=== PATIENT | female | born 1965 | race African-American/Black ===

== ENCOUNTER 2021-10-12 07:02 | Emergency (ER) | payer BC ==
--- OUTSIDE RECORDS SUMMARY | 2021-10-12 07:07 | XMS REPORT | Continuity of Care Document ---
:[address] [facility] t Address [address] [place] [address] Care Team Providers Name Role Phone Kishor Abdullahi DO Yeni Primary Care Physician PILAR PETERSON Attending Clinician Unavailable JOHNNY COLE Attending Clinician Unavailable Rodrick Guzman MD Attending Clinician [phone] Giovanny Guidry RN Attending Clinician Unavailable Austin WALTON, Carley Oro Attending Clinician Unavailable Griselda Mccann MD Attending Clinician GRISELDA MCCANN Attending Clinician Unavailable Johnny Cole MD Attending Clinician DOV BULLOCK Attending Clinician Unavailable Dov Bullock MD Attending Clinician Dov Bullock MD Attending Clinician Unavailable Lotus Mcgrath MD Attending Clinician [phone] JOE CALDERA Attending Clinician Unavailable Pilar Peterson MD Attending Clinician LAWRENCE NATHAN Attending Clinician Unavail able LAWRENCE NATHAN Admitting Clinician Unavail able Payers Payer Name Policy Type Policy Number Effective Date Expiration Date Shorty majano BCBS PPO POS EPO [id number] 2021 CHOICE 00:00:00 [employer]ET[employer] SELECT [id number] 2020 ACCESS 00:00:00 NETWORK OPEN [id number] 2019 ACCESS - CIGNA 00:00:00 HMO/QPOS/SELECT [id number] 2020 2020 - AETNA 00:00:00 00:00:00 CIGNA [id number] 2008 HMO/POS/OPEN 00:00:00 ACCESS Problems Condition Condition Condition Status Onset Resolution Last Treating Co mments Source Name Details Category Date Date Treatment Clinician Date Posterior Posterior Disease Active 2019-[address] [facility] tibial tibial 0-08 [facility] tendinitis tendinitis 00:00: Me dical of left of left 00 Center lower lower extremity extremity Tarsal Tarsal Disease Active 2019-[address] [facility] 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 Father only Performanc Performanc Disease Active [facility] e anxiety e anxiety 4-11 [facility] 00:00: Medical 00 Center Obesity Obesity Disease Active [facility] (BMI (BMI 5-05 [facility] 30-39.9) 30-39.9) 00:00: Medica l 00 Center Impaired Impaired Disease Active Overview: [facility] fasting fasting 5-05 [facility] blood blood 00:00: g of this Medical sugar sugar 00 note Center might be different from the original. A1c 6 Vitamin D Vitamin D Disease Active Overview: [facility] deficiency deficiency 5-05 [facility] 00:00: g of this Medical note Center might be different from the original. On Vit D supplemen ts Uterine Uterine Disease Active 2012-02 Overview: [facility] fibroid fibroid 03-03 Formattin [employer] 00:00: g of this Medical note Center might be different from the original. Dr Sandhya Feng -S/p ablation, still some bleeding No known No known Disease Metho di active active st problems problems Hospit a l Allergies, Adverse Reactions, Alerts Allergy Allergy Status Severity Reaction(s) Onset Inactive Treating Comm ents Source Name Type Date Date Clinician Sulfur Propensi Active 2019-02 [facility] ty to 1-10 College adverse 00:00: of reaction 00 Medicin s to e drug Sulfa Propensi Active Anaphylaxis [facility] (Sulfona ty to 2-16 [facility] adverse 00:00: Hospita Antibiot reaction 00 l ics) s to drug Sulfa Drug Active Anaphylaxis, 2012-[address] [facility] [address] [facility] (Sulfona Allergy Other (See 0-30 THROAT [facility] mide Comments) 00:00: SWELLING Medic al Antibiot 00 Center ics) SULFA Allergy Active High Anaphylaxis 2012-02 [facility] (SULFONA 0-30 MIDE 00:00: ANTIBIOT 00 ICS) Sulfamet Propensi Active Swelling 2012-02 [facility] hoxazole ty to 0-27 [facility] -[facility] adverse 00:00: of oprim reaction 00 Medicin s to e drug Sulfa Propensi Active Swelling [facility] Antibiot ty to 3-29 College ics adverse 00:00: of reaction 00 Medicin s to e drug Family History Family Member Diagnosis Comments Start Date Stop Date Source Natural father Aneurysm [facility] Natural father Aneurysm [facility] Natural father Hypertension [facility] Maternal grandmother Cancer [facility] Maternal grandmother Multiple myeloma [facility] Natural mother No Known Problems Met [facility] Other Multiple myeloma [facility] Paternal grandmother Diabetes [facility] Social History Social Habit Start Date Stop Date Quantity Comments Source History SDOH [facility] Frequency Hospita l History SDOH [facility] Std Hospital Drinks History SDOH [facility] Binge Hospital Alcohol intake 2017-04-15 2017-04-15 Current drinker of [facility] 00:00:00 00:00:00 alcohol (finding) Hospita l Alcohol Comment 2017-04-15 2017-04-15 Occasional wine Meth odist 00:00:00 00:00:00 Hospital Tobacco use and 2017-04-15 2017-04-15 Smokeless tobacco [facility] exposure 00:00:00 00:00:00 non-user Hospital Sex Assigned At [birth year] [facility] 00:00:00 00:00:00 Hospital Smoking Status Start Date Stop Date Source Never smoker [facility] o f Medicine Medications Ordered Filled Start Stop Current Ordering Indication Dosage Frequency Signature Comments Components Source Medication Medication Date Date Medication? Clinician (SIG) Name Name valsartan 2020-02 Yes 160mg QD Take [address] [facility] (DIOVAN) 0-22 mg by [facility] 320 MG 14:23: mouth Medical tablet 10 daily . [place] valsartan 2020-02 Yes 160mg QD Take [address] [facility] (DIOVAN) 0-22 mg by [facility] 320 MG 14:23: mouth Medical tablet 10 daily . [place] chlorthalid 2020-02- No TAKE [address] [facility] one 0-04 10-22 TABLET BY [facility] (HYGROTON) 00:00: 00:00 MOUTH Medic al 25 MG 00 :00 EVERY DAY Center tablet chlorthalid 2020-02- No TAKE [address] [facility] one 0-04 10-22 TABLET BY [employer] (HYGROTON) 00:00: 00:00 MOUTH Medic al 25 MG 00 :00 EVERY DAY Center tablet amlodipine Yes 5mg Take 5 mg [facility] (NORVASC) 5 9-13 by mouth. Col [facility]ge MG tablet 15:54: of 16 Medicin e valsartan Yes 320mg Take 320 [facility] (DIOVAN) 9-13 mg by [place] 320 MG 15:54: mouth. of tablet 16 Medicin e amlodipine Yes 5mg Take 5 mg [facility] (NORVASC) 5 9-13 by mouth. Col lege MG tablet 15:54: of 16 Medicin e valsartan Yes 320mg Take 320 [facility] (DIOVAN) 9-13 mg by College 320 MG 15:54: mouth. of tablet 16 Medicin e chlorthalid 2021- No 25mg Take 25 mg [facility] one 11-05- by mouth. [place] (HYGROTEN) 00:00: 04:59 of 25 MG 00 :00 Medicin tablet e chlorthalid 2020-0 2022- No 25mg Take 25 mg [facility] one 11-05 by mouth. [place] ([facility]) 00:00: 04:59 of 25 MG 00 :00 Medicin tablet e chlorthalid 2020-0 2021- No 25mg QD Take [address] [facility] one 11-05 tablet (25 [facility] (HYGROTON) 00:00: 00:00 mg total) M edical 25 MG 00 :00 by mouth Center tablet daily. chlorthalid 2020-0 2021- No 25mg QD Take [address] [facility] one 11-05 tablet (25 [facility] (HYGROTON) 00:00: 00:00 mg total) M edical 25 MG 00 :00 by mouth Center tablet daily. meclizine 2020-0 Yes [facility] (ANTIVERT) 10-20 [place] 12.5 MG 00:00: of tablet 00 Medicin e meclizine 0 Yes [facility] (ANTIVERT) 10-20 [place] 12.5 MG 00:00: of tablet 00 Medicin e meclizine 2020-0 202- No 12.5mg Take [address] (ANTIVERT) 10-20 tablet [facility] 12.5 mg 00:00: 23:59 (12.5 mg Medic al tablet 00 :00 total) by Center mouth 3 (three) times daily as needed for Dizziness or Nausea for up to 10 days. meclizine 2020-0 2020- No 12.5mg Take [address] [facility] (ANTIVERT) 10-20 tablet [facility] 12.5 mg 00:00: 23:59 (12.5 mg Medic al tablet 00 :00 total) by Center mouth 3 (three) times daily as needed for Dizziness or Nausea for up to 10 days. hydrochloro 2020-0 Yes [facility] thiazide -16 [place] 12.5 MG 00:00: of TABS 00 Medicin e hydrochloro 2020-0 Yes [facility] thiazide -16 [place] 12.5 MG 00:00: of TABS 00 Medicin e hydroCHLORO 2020-0 2021- No 12.5mg QD Take [address] thiazide 10-13 tablet [facility] (HYDRODIURI 00:00: 00:00 (12.5 mg M edical L) 12.5 MG 00 :00 total) by Cent er tablet mouth daily. hydroCHLORO 2020- No 12.5mg QD Take [address] thiazide 10-13 tablet [facility] (HYDRODIURI 00:00: 00:00 (12.5 mg M edical L) 12.5 MG 00 :00 total) by Cent er tablet mouth daily. VIRTUSSIN Yes [facility] A/C 100-10 8-11 College MG/5ML 00:00: of liquid 00 Medicin e VIRTUSSIN Yes [facility] A/C 100-10 8-11 College MG/5ML 00:00: of liquid 00 Medicin e amLODIPine 2020- No 5mg QD Take [address] (NORVASC) 5 8-10 08-10 by mouth [facility] MG tablet 13:39: 00:00 daily. Medic al 16 :00 [place] amLODIPine 2020- No 5mg QD Take [address] (NORVASC) 5 8-10 08-10 by mouth [facility] MG tablet 13:39: 00:00 daily. Medic al 16 :00 [place] azithromyci Yes TAKE 2 [facility] n 8-10 TABLET BY [place] (ZITHROMAX) 00:00: MOUTH ON of 250 MG 00 DAY 1 AND Medicin tablet 1 BY MOUTH e EVERY DAY AFTER dexamethaso Yes [facility] ne 6 MG 8-10 [place] TABS 00:00: of 00 Medicin e azithromyci 0 Yes TAKE 2 [facility] n 8-10 TABLET BY [place] (ZITHROMAX) 00:00: MOUTH ON of 250 MG 00 DAY 1 AND Medicin tablet 1 BY MOUTH e EVERY DAY AFTER dexamethaso Yes [facility] ne 6 MG 8-10 [place] TABS 00:00: of 00 Medicin e albuterol 2021- No 1{puff} 1 Puff by [facility] 108 (90 8-10 08-11 Inhalation [facility]) 00:00: 04:59 route. of mcg/act 00 :00 Medicin inhaler e albuterol 2021- No 1{puff} 1 Puff by [facility] 108 (90 8-10 08-11 Inhalation [facility]le [facility] base) 00:00: 04:59 route. of mcg/act 00 :00 Medicin inhaler e albuterol 2021- No 1{puff} Inhale [address] [facility] HFA (ProAir 8-10 08-10 puff by [facility] HFA) 90 00:00: 23:59 mouth via Medi jim mcg/actuati 00 :00 inhaler Cente r on inhaler every 6 (six) hours as needed for Wheezing or Shortness of Breath. albuterol 2021- No 1{puff} Inhale [address] [facility] HFA (ProAir 8-10 08-10 puff by [facility] HFA) 90 00:00: 23:59 mouth via Medi jim mcg/actuati 00 :00 inhaler Cente r on inhaler every 6 (six) hours as needed for Wheezing or Shortness of Breath. codeine-gua 2020- No 5mL Take [address] [facility] ifenesin 8-10 08-20 by mouth 3 [facility] (GUAIFENESI 00:00: 23:59 (three) Me dical N AC) 00 :00 times Center 10-100 mg/5 daily as mL liquid needed for Cough for up to 10 days. Max Daily Amount: 15 mLs dexAMETHaso 2020-2020- No 6mg Take [address] [facility] ne 8-10 08-20 tablet (6 [facility] (DECADRON) 00:00: 23:59 mg total) M edical 6 MG tablet 00 :00 by mouth Cent er daily with breakfast for 10 days. codeine-gua 2020-2020- No 5mL Take [address] ifenesin 8-10 08-20 by mouth 3 [facility] (GUAIFENESI 00:00: 23:59 (three) Me dical N AC) 00 :00 times Center 10-100 mg/5 daily as mL liquid needed for Cough for up to 10 days. Max Daily Amount: 15 mLs dexAMETHaso 2020-2020- No 6mg Take [address] [facility] ne 8-10 08-20 tablet (6 [facility] (DECADRON) 00:00: 23:59 mg total) M edical 6 MG tablet 00 :00 by mouth Cent er daily with breakfast for 10 days. AZITHROmyci 2020- No Mild take [address] [facility] n 8-10 08-15 intermitten tablets Luke [facility] (Zithromax 00:00: 23:59 t asthma today, Medical Z-Coy) 250 00 :00 with then take Cent er MG tablet exacerbatio 1 tablet n by mouth from day 2 to 5. AZITHROmyci 2020- No Mild take [address] [facility] n 8-10 08-15 intermitten tablets Luke [facility] (Zithromax 00:00: 23:59 t asthma today, Medical Z-Coy) 250 00 :00 with then take Cent er MG tablet exacerbatio 1 tablet n by mouth from day 2 to 5. gabapentin 2019-02- No TAKE [address] [facility] (NEURONTIN) 2 08-10 CAPSULE(10 L ukes 100 MG 00:00: 00:00 0 MG) BY Medica l capsule 00 :00 MOUTH Center THREE TIMES DAILY gabapentin 2019-02- No TAKE [address] [facility] (NEURONTIN) 2 08-10 CAPSULE(10 L [facility]kes 100 MG 00:00: 00:00 0 MG) BY Medica l capsule 00 :00 MOUTH Center THREE TIMES DAILY amlodipine 2019-02 Yes 5mg Take 5 mg [facility] (NORVASC) 5 1-10 by mouth. Col [facility]ge MG tablet 20:42: of 13 Medicin e valsartan 2019-02 Yes 320mg Take 320 [facility] (DIOVAN) 1-10 mg by [facility] 320 MG 20:42: mouth. of tablet 13 Medicin e gabapentin 2019-02 Yes TAKE 1 [facility] (NEURONTIN) 0-20 CAPSULE(10 Co llege 100 MG 00:00: 0 MG) BY of capsule 00 MOUTH Medicin THREE e TIMES DAILY gabapentin 2019-02 Yes TAKE 1 [facility] (NEURONTIN) 0-20 CAPSULE(10 Co llege 100 MG 00:00: 0 MG) BY of capsule 00 MOUTH Medicin THREE e TIMES DAILY gabapentin 2019-02 Yes TAKE 1 [facility] (NEURONTIN) 0-20 CAPSULE(10 Co llege 100 MG 00:00: 0 MG) BY of capsule 00 MOUTH Medicin THREE e TIMES DAILY hydrocodone 2020- Yes TK 1-2 T [facility] -acetaminop 0-14 PO Q 6 H [facility]ie e[facility] hen (NORCO) 00:00: PRN FOR of 5-325 mg 00 PAIN Medicin tablet e hydrocodone 2020- Yes TK 1-2 T [facility] -acetaminop 0-14 PO Q 6 H [facility] (NORCO) 00:00: PRN FOR of 5-325 mg 00 PAIN Medicin tablet e hydrocodone 2019- Yes TK 1-2 T [facility] -acetaminop 0-14 PO Q 6 H [facility] (NORCO) 00:00: PRN FOR of 5-325 mg 00 PAIN Medicin tablet e Acetaminoph 2020-0 Yes TK 1 T PO B aylor en-Codeine 9-17 Q 4 H PRN Lillie ege 300-60 MG 00:00: P FOR UP of TABS 00 TO 10 Medicin DAYS. MDD e 6 TS Acetaminoph 2020-0 Yes TK 1 T PO B aylor en-Codeine 9-17 Q 4 H PRN Lillie ege 300-60 MG 00:00: P FOR UP of TABS 00 TO 10 Medicin DAYS. MDD e 6 TS Acetaminoph 2020-0 Yes TK 1 T PO B aylor en-Codeine 9-17 Q 4 H PRN Lillie ege 300-60 MG 00:00: P FOR UP of TABS 00 TO 10 Medicin DAYS. MDD e 6 TS celecoxib 2020-0 Yes TAKE 1 [facility] (CELEBREX) 9-10 CAPSULE(10 [facility] 100 MG 00:00: 0 MG) BY of capsule 00 MOUTH Medicin EVERY 12 e HOURS celecoxib 2020-0 Yes TAKE 1 [facility] (CELEBREX) 9-10 CAPSULE(10 [facility] 100 MG 00:00: 0 MG) BY of capsule 00 MOUTH Medicin EVERY 12 e HOURS celecoxib 2020-0 Yes TAKE 1 [facility] (CELEBREX) 9-10 CAPSULE(10 [facility] 100 MG 00:00: 0 MG) BY of capsule 00 MOUTH Medicin EVERY 12 e HOURS celecoxib 2020-0 2020- No Posterior TAKE [address] [facility] (CELEBREX) 9-10 08-10 tibial CAPSULE(10 [facility] 100 MG 00:00: 00:00 tendinitis 0 MG) BY Medical capsule 00 :00 of left MOUTH Center lower EVERY 12 extremity HOURS celecoxib 2020- No Posterior TAKE [address] [facility] (CELEBREX) 9-10 08-10 tibial CAPSULE(10 [facility] 100 MG 00:00: 00:00 tendinitis 0 MG) BY Medical capsule 00 :00 of left MOUTH Center lower EVERY 12 extremity HOURS amLODIPine Yes TK 1 T PO [facility] Besylate-Va 8-18 D [facility] lsartan 00:00: of 10-320 MG 00 Medicin TABS e amLODIPine Yes TK 1 T PO [facility] Besylate-Va 8-18 D [facility] lsartan 00:00: of 10-320 MG 00 Medicin TABS e amLODIPine Yes TK 1 T PO [facility] Besylate-Va 8-18 D [facility] lsartan 00:00: of 10-320 MG 00 Medicin TABS e amlodipine- 2020- No TK [address] [facility] valsartan 10-15 08-10 D [facility] (EXFORGE) 00:00: 00:00 Medical 10-320 mg 00 :00 Center per tablet amlodipine- 2020- No TK [address] [facility] valsartan 10-15 08-10 D [facility] (EXFORGE) 00:00: 00:00 Medical 10-320 mg 00 :00 Center per tablet citalopram 2020- No 10mg Take 10 mg [facility] (CELEXA) 10 3-05 03-06 by mouth. Co llege MG tablet 00:00: 05:59 of 00 :00 Medicin e citalopram 2020- No 10mg QD Take [address] [facility] (CELEXA) 10 3-05 03-05 tablet (10 [facility] MG tablet 00:00: 23:59 mg total) Me dical 00 :00 by mouth Center daily. citalopram 2020- No 10mg QD Take [address] [facility] (CELEXA) 10 3-05 03-05 tablet (10 [facility] MG tablet 00:00: 23:59 mg total) Me dical 00 :00 by mouth Center daily. omeprazole Yes TK 1 C [facility] (PRILOSEC) 9-24 QAM B BATOOL Lillie ege 40 MG 00:00: of capsule 00 Medicin e omeprazole Yes TK 1 C PO [facility] (PRILOSEC) 9-24 QAM B BATOOL Lillie ege 40 MG 00:00: of capsule 00 Medicin e omeprazole Yes TK 1 C PO [facility] (PRILOSEC) 9-24 QAM B BATOOL Lillie ege 40 MG 00:00: of capsule 00 Medicin e omeprazole 2020- No 40mg Take [address] [facility] (PRILOSEC) 11-21 by mouth [facility] 40 MG 00:00: 00:00 as needed Medica l capsule 00 :00 . [place] omeprazole 2020- No 40mg Take [address] (PRILOSEC) 11-21 by mouth [facility] 40 MG 00:00: 00:00 as needed Medica l capsule 00 :00 . Center naltrexone- Yes Take 1 Meth brittny bupropion 2-[address] (CONTRAVE) 00:00: x 1 wk, [facility]osp [facility] 8-90 mg 00 then 1 l tablet tablet extended twice release daily x 1 wk, then 2 tablets QAM and 1 tablet before dinner x 1 wk, then 2 tablets BID thereaf naltrexone- Yes Take 1 Meth brittny bupropion 2-[address] (CONTRAVE) 00:00: x 1 wk, [facility] 8-90 mg 00 then 1 l tablet tablet extended twice release daily x 1 wk, then 2 tablets QAM and 1 tablet before dinner x 1 wk, then 2 tablets BID thereaf lorcaserin Yes 20mg QD Take 20 mg M ethodi (BELVIQ XR) 2-[address] 20 mg 00:00: daily. Hospita tablet 00 l extended release 24 hr lorcaserin Yes 20mg QD Take 20 mg M ethodi (BELVIQ XR) 2-[address] 20 mg 00:00: daily. Hospita tablet 00 l extended release 24 hr Immunizations Ordered Immunization Filled Immunization Date Status Commen ts Source Name Name Covid-19 Vaccine 2021-01-[address] [facility]na (Pf) 00:00:00 [facility] ([employer]) Covid-19 Vaccine 2021-01-[address] [facility] (Pf) 00:00:00 [facility] ([employer]) Covid-19 Vaccine 2020-09-[address] [facility] Mrna (Pf) 00:00:00 [facility] (Pfizer/[employer]) Covid-19 Vaccine 2020-09-[address] [facility] Mrna (Pf) 00:00:00 [facility] (Pfizer/[employer]) PPD Test 2014-05-[address] [facility] 00:00:00 [facility] Center PPD Test 2014-05-[address] [facility] 00:[facility]:00 [facility] Hepatitis A 2014-01-[address] [facility]00 [facility] Hepatitis A 2014-01-[address] [facility] 00:[facility]:00 [facility] Hepatitis A 2013-07-[address] [facility]00 [facility] Hepatitis A 2013-07-[address] [facility] 00:[facility]:00 [facility] PPD Test 2013-07-[address] [facility] 00:00:00 [facility] PPD Test 2013-07-[address] [facility] 00:[facility]:00 [facility] Influenza TIV (IM) 2013-01-[address] [facility] 00:[facility]:00 [facility] Influenza TIV (IM) 2013-01-[address] [facility] 00:00:00 [facility] Vital Signs Vital Name Observation Time Observation Value Comments Source Systolic blood 2020-11-10 20:53:00 129 mm[Hg] [facility] of pressure Medicine Diastolic blood 2020-11-10 20:53:00 81 mm[Hg] [facility] pressure Medicine Heart rate 2020-11-10 20:53:00 99 /min [facility] Body height 2020-11-10 20:53:00 165.1 cm [facility] Body weight 2020-11-10 20:53:00 95.255 kg [facility] BMI 2020-11-10 20:53:00 34.95 kg/m2 [facility] HEIGHT 2020-11-05 10:37:00 165.1 cm WEIGHT 2020-11-05 10:37:00 101.696 kg HEIGHT 2020-10-13 15:08:00 165.1 cm WEIGHT 2020-10-13 15:08:00 102.513 kg HEIGHT 2020-10-10 08:39:00 165.1 cm WEIGHT 2020-10-10 08:39:00 102.7 kg HEIGHT 2020-10-10 08:39:00 165.1 cm WEIGHT 2020-10-10 08:39:00 102.7 kg Systolic blood 2020-01-08 20:41:00 134 mm[Hg] [facility] pressure Medicine Diastolic blood 2020-01-08 20:41:00 85 mm[Hg] [facility] Medicine Heart rate 2020-01-08 20:41:00 80 /min [facility] height 2020-01-08 20:41:00 165.1 cm [facility] Body weight 2020-01-08 20:41:00 95.255 kg [facility] BMI 2020-01-08 20:41:00 34.95 kg/m2 [facility] HEIGHT 2020-01-03 09:37:00 165.1 cm WEIGHT 2020-01-03 09:37:00 95.709 kg HEIGHT 2019-12-06 00:00:00 165.1 cm WEIGHT 2019-12-06 00:00:00 96.163 kg HEIGHT 2019-11-08 00:00:00 165.1 cm WEIGHT 2019-11-08 00:00:00 93.895 kg Systolic blood 2020-11-05 10:37:00 132 mm[Hg] [facility] Diastolic blood 2020-11-05 10:37:00 86 mm[Hg] [facility] Heart rate 2020-11-05 10:37:00 89 /min [facility] Body temperature 2020-11-05 10:37:00 36.28 Carissa [facility] Respiratory rate 2020-11-05 10:37:00 16 /min [facility] Body height 2020-11-05 10:37:00 165.1 cm [facility] Body weight 2020-11-05 10:37:00 101.696 kg [facility] BMI 2020-11-05 10:37:00 37.31 kg/m2 [facility] Oxygen saturation in 2020-11-05 10:37:00 98 /min [facility] Arterial blood by Medical Ce nter Pulse oximetry Procedures Procedure Date / Time Performed Performing Clinician Jerrica mayfield SARS-COV2/RT-PCR ([facility] & 2021-02-18 14:35:00 Rodrick Guzman [facility] REF LABS) [facility] HC ARTERIAL DOPPLER LEGS 2021-01-13 13:56:[address] [facility] VENOUS DOPPLER LEGS 2021-01-13 13:56:00 Griselda Mccann [facility] BASIC METABOLIC PANEL (7) 2020-12-02 07:41:[facility] VIEWS 2020-10-21 08:54:00 Douglas [facility] SARS-COV2/RT-PCR ([facility] & 2020-10-06 07:23:00 Rdorick uGzman [facility] REF LABS) [facility] B-TYPE NATRIURETIC FACTOR 2020-04-08 07:44:[address] [facility] (BNP) [facility] C-REACTIVE PROTEIN 2020-04-08 07:44:00 Pilar Peterson [facility] MAGNESIUM 2020-04-08 07:44:00 Pilar Peterson [facility] TSH 2020-04-08 07:44:00 Pilar Peterson [facility] HEMOGLOBIN A1C 2020-04-08 07:44:00 Pilar Peterson [facility] LIPID PANEL 2020-04-08 07:44:00 Pilar Peterson [facility] COMPREHENSIVE METABOLIC 2020-04-08 07:44:00 Pilar Peterson [facility] CBC W/PLT COUNT & AUTO 2020-04-08 07:44:[address] [facility] CBC W/PLT COUNT & AUTO 2020-04-08 07:44:[address] [facility] Plan of Care Planned Activity Planned Date Details Comments Source Future Scheduled 2023-04-08 Lipid panel (procedure) [facility] Test 00:00:00 [code = 66600885] Medical Ce nter Future Scheduled 2023-04-08 Lipid panel (procedure) [facility] Test 00:00:00 [code = 11248444] Medical Ce nter Future Scheduled 2021-07-30 COVID-19 VACCINE (3 [facility] Test [facility]:00 Booster for Pfizer Medical C enter series) [code = COVID-19 VACCINE (3 - Booster for Pfizer series)] Future Scheduled 2021-07-30 COVID-19 VACCINE (3 - [facility] Test 00:00:00 Booster for Pfizer Medical C enter series) [code = COVID-19 VACCINE (3 - Booster for Pfizer series)] Future Scheduled 2021-03-31 COVID-19 VACCINE (1) [facility] Test 17:38:11 [code = COVID-19 Hospital VACCINE (1)] Future Scheduled 2021-03-31 Screening for malignant [facility] Test 17:38:11 neoplasm of cervix Hospital (procedure) [code = 109377812] Future Scheduled 2021-03-31 COLONOSCOPY SCREENING [facility] Test 17:38:11 [code = COLONOSCOPY Hospital SCREENING] Future Scheduled 2021-03-31 SHINGLES VACCINES (#1) M [facility]ist Test 17:38:11 [code = SHINGLES Hospital VACCINES (#1)] Future Scheduled 2021-03-31 BREAST CANCER SCREENING [facility] Test 17:38:11 [code = BREAST CANCER Hospit al SCREENING] Future Scheduled 2021-03-31 INFLUENZA VACCINE [code [facility] Test 17:38:11 = INFLUENZA VACCINE] Hospita l Future Scheduled 2021-03-31 COVID-19 VACCINE (1) [facility] Test 17:38:11 [code = COVID-19 Hospital VACCINE (1)] Future Scheduled 2021-03-31 Screening for malignant [facility] Test 17:38:11 neoplasm of cervix Hospital (procedure) [code = 115861283] Future Scheduled 2021-03-31 COLONOSCOPY SCREENING [facility] Test 17:38:11 [code = COLONOSCOPY Hospital SCREENING] Future Scheduled 2021-03-31 SHINGLES VACCINES (#1) [facility] Test 17:38:11 [code = SHINGLES Hospital VACCINES (#1)] Future Scheduled 2021-03-31 BREAST CANCER SCREENING [facility] 17:38:11 [code = BREAST CANCER Hospit al SCREENING] Future Scheduled 2021-03-31 INFLUENZA VACCINE [code [facility] Test 17:38:11 = INFLUENZA VACCINE] Hospita l Future Scheduled 2021-02-[address] [facility] Test 00:00:00 (12+) [code = Medical Center DEPRESSION SCREENING (12+)] Future Scheduled 2021-02-[address] [facility] Test 00:00:00 (12+) [code = Medical Center DEPRESSION SCREENING (12+)] Future Scheduled 2020-11-10 Screening for malignant [facility] Test 16:26:20 neoplasm of colon of Medicin e (procedure) [code = 670272717] Future Scheduled 2020-11-10 Screening for malignant [facility] Test 16:26:20 neoplasm of breast of Medici ne (procedure) [code = 227179167] Future Scheduled 2020-11-10 TETANUS SHOT (ADULT) [facility] Test 16:26:20 [code = TETANUS SHOT of Medi cine (ADULT)] Future Scheduled 2020-11-10 BMI FOLLOW UP PLAN [facility] Test 16:26:20 [code = BMI FOLLOW UP of Med icine PLAN] Future Scheduled 2020-11-10 Human immunodeficiency B [facility] Test 16:26:20 virus screening of Medicine (procedure) [code = 007354540] Future Scheduled 2020-11-10 Screening for malignant [facility] Test 16:26:20 neoplasm of cervix of Medici ne (procedure) [code = 025464840] Future Scheduled 2020-11-10 ZOSTER VACCINE (1 of 2) [facility] Test 16:26:20 [code = ZOSTER VACCINE of Me dicine (1 of 2)] Future Scheduled 2020-11-10 FLU VACCINE > 6 MON[facility] 16:26:20 [code = FLU VACCINE > 6 of M edicine MONTHS] Future Scheduled 2020-11-10 COVID-19 Vaccine (2 - Ba or College Test 16:26:20 Pfizer 2-dose series) of Med icine [code = COVID-19 Vaccine (2 - Pfizer 2-dose series)] Future Scheduled 2020-11-10 Screening for malignant [facility] Test 16:26:20 neoplasm of colon of Medicin e (procedure) [code = 576555333] Future Scheduled 2020-11-10 Screening for malignant [facility] Test 16:26:20 neoplasm of breast of Medici ne (procedure) [code = 808253062] Future Scheduled 2020-11-10 TETANUS SHOT (ADULT) [facility] Test 16:26:20 [code = TETANUS SHOT of Medi cine (ADULT)] Future Scheduled 2020-11-10 BMI FOLLOW UP PLAN [facility] Test 16:26:20 [code = BMI FOLLOW UP of Med icine PLAN] Future Scheduled 2020-11-10 Human immunodeficiency B [facility] Test 16:26:20 virus screening of Medicine (procedure) [code = 146785670] Future Scheduled 2020-11-10 Screening for malignant [facility] Test 16:26:20 neoplasm of cervix of Medici ne (procedure) [code = 996285039] Future Scheduled 2020-11-10 ZOSTER VACCINE (1 of 2) [facility] Test 16:26:20 [code = ZOSTER VACCINE of Or dicine (1 of 2)] Future Scheduled 2020-11-10 FLU VACCINE > 6 MONTHS B [facility] Test 16:26:20 [code = FLU VACCINE > 6 of M edicine MONTHS] Future Scheduled 2020-11-10 COVID-19 Vaccine (2 - Ba [facility] Test 16:26:20 Pfizer 2-dose series) of Med icine [code = COVID-19 Vaccine (2 - Pfizer 2-dose series)] Future Scheduled 2020-11-10 ORT - XR ANKLE LEFT 3V Ordered: B [facility] Test 16:00:04 (CHARGE ONLY) [code = 11/10/2020 of Med icine 96160] Future Scheduled 2020-11-10 ORT - XR ANKLE LEFT 3V Ordered: B [facility] Test 16:00:04 (CHARGE ONLY) [code = 11/10/2020 of Med icine 35059] Future Scheduled 2020-10-29 INFLUENZA VACCINE (#1) [facility] 00:00[facility]00 [code = INFLUENZA Medical Ce nter VACCINE (#1)] Future Scheduled 2020-10-29 INFLUENZA VACCINE (#1) [facility] Test 00:00:00 [code = INFLUENZA Medical Ce nter VACCINE (#1)] Future Scheduled 2017-10-17 SHINGLES VACCINES ([address] [facility] Test 00:00:00 2) [code = SHINGLES Medical Center VACCINES (1 of 2)] Future Scheduled 2017-10-17 SHINGLES VACCINES ([address] [facility] Test 00:00:00 2) [code = SHINGLES Medical Center VACCINES (1 of 2)] Future Scheduled 2015-06-06 Screening for malignant [facility] Test 00:00:00 neoplasm of breast Medical C enter (procedure) [code = 103347484] Future Scheduled 2015-06-06 Screening for malignant [facility] Test 00:00:00 neoplasm of breast Medical C enter (procedure) [code = 126638183] Future Scheduled 1988-10-17 Screening for malignant [facility] Test 00:00:00 neoplasm of cervix Medical C enter (procedure) [code = 064615438] Future Scheduled 1988-10-17 Screening for malignant [facility] Test 00:00:00 neoplasm of cervix Medical C enter (procedure) [code = 685452323] Future Scheduled 1986-10-17 DTAP/TDAP/TD [facility]ACCINES [facility] Test 00:00:00 (1 - Tdap) [code = Medical C enter DTAP/TDAP/TD VACCINES (1 - Tdap)] Future Scheduled 1986-10-17 DTAP/TDAP/TD [facility]ACCINES [facility] Test 00:00:00 (1 - Tdap) [code = Medical C enter DTAP/TDAP/TD VACCINES (1 - Tdap)] Future Scheduled 1973-10-[address] [facility] Test 00:00:00 0-64 YRS (1 of 2 - Medical C enter PPSV23) [code = PNEUMOCOCCAL VACCINE 0-64 YRS (1 of 2 - PPSV23)] Future Scheduled 1973-10-[address] [facility] Test 00:00:00 0-64 YRS (1 of 2 - Medical C enter PPSV23) [code = PNEUMOCOCCAL VACCINE 0-64 YRS (1 of 2 - PPSV23)] Future Scheduled 1967 Screening for malignant [facility] Test 00:00:00 neoplasm of colon Medical Ce nter (procedure) [code = 243183958] Future Scheduled 1967 Screening for malignant [facility] Test 00:00:00 neoplasm of colon Medical Ce nter (procedure) [code = 286473122] Future Scheduled ORT - XR FOOT LEFT 3V Ordered: efra Bowen Test (CHARGE ONLY) [code = 01/08/2020 of Med icine 86309] Future Scheduled [facility] ankle gauntlet Ordered: Froy Bowen Test pre ots [code = L1902] 01/08/2020 of Me dicine Future Scheduled COLON CANCER SCREENING: [facility] Test COLONOSCOPY [code = of Medic ine COLON CANCER SCREENING: COLONOSCOPY] Future Scheduled MAMMOGRAM ANNUAL [facility] of Medic ine Future Scheduled TETANUS SHOT (ADULT) [facility] Test [code = TETANUS SHOT of Medi cine (ADULT)] Future Scheduled [facility] of Medicine Future Scheduled CERVICAL CANCER [facility] ollege Test SCREENING 3 YEAR FOLLOW of M edicine UP [code = CERVICAL CANCER SCREENING 3 YEAR FOLLOW UP] Future Scheduled ZOSTER VACCINE (1 of 2) [facility] Test [code = ZOSTER VACCINE of Me dicine (1 of 2)] Future Scheduled FLU VACCINE > 6 MONTHS Postponed from [facility] Test [code = FLU VACCINE > 6 09/29/2019 of M edicine MONTHS] (Postpone Reason: Patient declined today) Encounters Start End Encounter Admission Attending Care Care Encounter Source Date/Time Date/Time Type Type Clinicians Facility Department ID 2021-12-14 2021-12-14 Outpatient FRANCESCA PETERSONGEOVANNA [facility] [id number] SLE 00:00:00 00:00:00 PILAR 2021-10-07 2021-10-07 Outpatient GEOVANNA BULLOCK [facility] [id number] SLE 00:00:00 00:00:00 PILAR 2021-09-17 2021-09-17 Outpatient FRANCESCA AUSTIN [facility] [id number] SLE 08:38:54 08:38:54 2021-06-22 2021-06-22 Outpatient FRANCESCA COLE [facility] [id number] 00:00:00 00:00:00 [facility] 2021-05-15 2021-05-15 Outpatient DOUGLAS [facility] [id number] 00:00:00 00:00:00 [facility] 2021-02-182021-02-18 Clinical EL Rodrick Guzman [facility] [id number] 14:30:55 14:45:55 Support BreaGiovanny [facility] 2021-02-18 2021-02-18 Outpatient EL [facility] [id number] [facility] 14:30:55 14:30:55 2021-02-04 2021-02-04 Outpatient DOUGLAS [facility] [id number] 00:00:00 00:00:00 [facility] 2021-01-30 2021-01-30 Immunizati [facility] [id number] 13:10:56 13:20:56 [facility] 2021-01-30 2021-01-30 Outpatient EL SLEH [facility] [id number] [facility] 13:10:56 13:10:56 2021-01-29 2021-01-29 Abstract Austin [facility] [id number] 00:00:00 00:00:00 [facility] 2021-01-14 2021-01-14 Outpatient EL SLEH [facility] [id number] [facility] 00:00:00 00:00:00 2021-01-14 2021-01-14 Outpatient EL [facility]H [facility] [id number] [facility] 00:00:00 00:00:00 2021-01-13 2021-01-13 [facility] [id number] 12:50:53 23:59:00 Encounter [facility] 2021-01-13 2021-01-13 Outpatient EL RAMY SLE SLEH [id number] [facility]H 12:50:53 23:59:00 GRISELDA 2021-01-13 2021-01-13 [facility] [id number] 12:50:46 23:59:00 Encounter [facility] 2021-01-13 2021-01-13 Outpatient EL RAMY SLEH SLEH [id number] [facility] 12:50:46 23:59:00 GRISELDA 2021-01-05 2021-01-05 Orders Ramy [facility] [id number] 00:00:00 00:00:00 Only [facility] 2020-12-19 2020-12-19 Abstract [place] [facility] [id number] 00:00:00 00:00:00 [facility] 2020-12-02 2020-12-02 [facility] [id number] 07:34:11 07:49:11 Only [place] [facility] 2020-12-02 2020-12-02 Outpatient [facility] [id number] SLE 07:34:11 07:34:11 2020-11-29 2020-11-29 Telephone Douglas [facility] [id number] 00:00:00 00:00:00 [facility] 2020-11-26 2020-11-26 Outpatient FRANCESCA BULLOCK [facility] [id number] SLE 00:00:00 00:00:00 DOV 2020-11-12 2020-11-12 Outpatient DOUGLAS [facility] [id number] 00:00:00 00:00:00 [facility] 2020-11-11 2020-11-11 Outside Ara [facility] [id number] 00:00:00 00:00:00 Orders Dov Donovan [facility] 2020-11-10 2020-11-10 Outpatient [facility] [id number] [facility] 16:04:14 16:04:14 [place] of Medicin e 2020-11-10 2020-11-10 Office ARUN Bullock [id number] [facility] 15:50:06 16:00:06 Visit Dov Tejada AMBULATOR 350.1.13.21 College Y 0.2.7.2.686 of [id number] Medi tyson 600 e 2020-11-09 2020-11-09 Telephone Douglas [facility] [id number] 00:00:00 00:00:00 [facility] 2020-11-05 2020-11-05 Office Douglas, [facility] [id number] 10:20:24 12:09:27 Visit [facility] 2020-10-23 2020-10-23 Telephone Douglas, [facility] [id number] 00:00:00 00:00:00 [facility] 2020-10-21 2020-10-21 Hospital Douglas, [facility] [id number] 08:30:00 23:59:00 Encounter [facility] 2020-10-21 2020-10-21 Outpatient EL DOUGLAS, [facility] [id number] SLE 00:00:00 00:00:00 [facility] 2020-10-20 2020-10-20 Video - Douglas, [facility] [id number] 11:46:55 12:17:42 [facility] 2020-10-20 2020-10-20 Travel [facility] [id number] [facility] 00:00:00 00:00:00 [facility] 2020-10-15 2020-10-15 Telephone Douglas, [facility] [id number] 00:00:00 00:00:00 [facility] 2020-10-13 2020-10-13 Video - Douglas, [facility] [id number] 15:07:20 15:47:48 [facility] 2020-10-13 2020-10-13 Refill Douglas, [facility] [id number] 00:00:00 00:00:00 [facility] 2020-10-13 2020-10-13 Travel [facility] [id number] [facility] 00:00:00 00:00:00 [facility] 2020-10-10 2020-10-10 Emergency Mcgrath, [facility] [id number] 08:32:00 11:32:00 [facility] 2020-10-10 2020-10-10 Emergency ER [facility] Emergency [id number] SLE 08:31:00 08:31:00 2020-10-10 2020-10-10 Travel [facility] [id number] [facility] 00:00:00 00:00:00 [facility] 2020-10-09 2020-10-09 Outpatient DOUGLAS, [facility] [id number] 00:00:00 00:00:00 [facility] 2020-10-08 2020-10-08 Telephone Douglas, [facility] [id number] 00:00:00 00:00:00 [facility] 2020-10-07 2020-10-07 Video - Douglas, [facility] [id number] 13:17:09 14:10:16 [facility] 2020-10-07 2020-10-07 Telephone Douglas, [facility] [id number] 00:00:00 00:00:00 [facility] 2020-10-06 2020-10-06 Office Rodrick Osborn [facility] [id number] 07:17:31 07:32:31 Visit Carley Avila [facility] 2020-10-06 2020-10-06 Outpatient [facility] [id number] SLE 00:00:00 00:00:00 2020-05-23 2020-05-23 Outpatient DOUGLAS, [facility] [id number] 00:00:00 00:00:00 [facility] 2020-05-09 2020-05-09 Outpatient WERNER [facility] [id number] 00:00:00 00:00:00 [facility] 2020-04-09 2020-04-09 Colby Peterson [facility] [id number] 08:09:49 08:24:49 Only Pilar Ann [facility] 2020-04-09 2020-04-09 Outpatient FRANCESCA AUSTIN SLE [id number] SLEH 08:09:49 08:09:49 2020-01-31 2020-01-31 Outpatient WERNER [facility] [id number] 00:00:00 00:00:00 [facility] 2020-01-29 2020-01-29 Outpatient DOUGLAS, [facility] [id number] 00:00:00 00:00:00 [facility] 2020-01-08 2020-01-08 Office ARUN Bullock [id number] [facility] 14:20:29 14:30:29 Visit Dov Coco AMBULATOR 350.1.13.21 College Y 0.2.7.2.686 of [id number] Medi tyson 600 e 2020-01-03 2020-01-03 Outpatient WERNER [facility] [id number] 00:00:00 00:00:00 [facility] 2019-12-06 2019-12-06 Outpatient WERNER [facility] [id number] 00:00:00 00:00:00 [facility] 2019-11-28 2019-11-28 [id number] [facility] 00:00:00 00:00:00 [facility] 2019-11-08 2019-11-08 Outpatient WERNER [facility] [id number] 00:00:00 00:00:00 [facility] 2019-05-29 2019-05-29 Outpatient DOUGLAS, [facility] [id number] 00:00:00 00:00:00 [facility] 2019-05-28 2019-05-28 Outpatient [facility] [id number] 00:00:00 00:00:00 [id number] [facility] 2019-05-03 2019-05-03 Outpatient [facility] [id number] 00:00:00 00:00:00 [id number] [facility] Results Test Description Test Time Test Comments Results Result Comments Source HEMOGLOBIN A1C 2021-09-17 11:08:20 Test Item Value Reference Range Interpretation Comme nts HEMOGLOBIN A1C ELECTROPHORESIS 6.0 % See_Comment H [Automated message] The system ([employer] (test code = 3811) which generated this result transmitted ref erence range: <=5.6%. The ref erence range was not used to int erpret this result as normal/abnor mal. "The A1c is measured using a NGSP-certified method. HbA1c value equal to or greater than 6.5% as thediagnosis cutoff for diabetes. An HbA1c value of 5.7- 6.4% indicates increased risk for diabetes (prediabetes)."Billet Checker ID - [id number] 2021-09-17 09:38:51 Test Item Value Reference Range Interpretation Comments THYROID STIMULATING HORMONE 1.504 uIU/mL 0.350-4.940 (BEAKER) (test code = 772) Billet Checker ID - PIAYA LBASIC METABOLIC [id number] 09:24:30 Test Item Value Reference Range Interpretation Comments SODIUM (BEAKER) 138 meq/L 136-145 (test code = 381) POTASSIUM (BEAKER) 4.0 meq/L 3.5-5.1 (test code = 379) CHLORIDE (BEAKER) 103 meq/L 98-107 (test code = 382) CO2 (BEAKER) (test 26 meq/L 22-29 code = 355) BLOOD UREA NITROGEN 9 mg/dL 7-21 (BEAKER) (test code = 354) CREATININE (BEAKER) 0.92 mg/dL 0.57-1.25 (test code = 358) GLUCOSE RANDOM 105 mg/dL 70-105 (BEAKER) (test code = 652) CALCIUM (BEAKER) 9.6 mg/dL 8.4-10.2 (test code = 697) EGFR (BEAKER) (test 77 mL/min/1.73 ESTIMA LUDWIG GFR IS code = 1092) sq m NOT ACCURATE CREATININE CLEARANCE IN PREDICTING GLOMERULAR FILTRATION RATE . ESTIMATED GFR I S NOT APPLICABLE FOR DIALYSIS PATIEN TS. Billet Checker ID - ADMINLIPID [id number] 09:24:30 Test Item Value Reference Range Interpretation Comments TRIGLYCERIDES (BEAKER) (test code = 92 mg/dL 540) CHOLESTEROL (BEAKER) (test code = 167 mg/dL 631) HDL CHOLESTEROL (BEAKER) (test code 34 mg/dL = 976) LDL CHOLESTEROL CALCULATED (BEAKER) 115 mg/dL (test code = 633) Triglyceride Reference Range: Low Risk <150 Borderline 150-199 High Risk 200-499 Very High Risk >=500Cholesterol Reference Range: Low Risk <200 Borderline 200-239 High Risk >240HDL Cholesterol Reference Range: Low Risk >=60 High Risk <40LDL Cholesterol Reference Range: Optimal <100 Near Optimal 100-129 Borderline 130-159 High 160-189 Very High >=190 Billet Checker ID - ADMINC-REACTIVE [id number] 09:24:30 Test Item Value Reference Range Interpretation Comments C-REACTIVE PROTEIN (BEAKER) (test 2.01 mg/dL 0.00-0.50 H code = 676) Billet Checker ID - ADMINCBC W/PLT COUNT & AUTO [id number] 08:57:39 Test Item Value Reference Range Interpretation Comments WHITE BLOOD CELL COUNT (BEAKER) 6.6 K/ L 3.5-10.5 (test code = 775) RED BLOOD CELL COUNT (BEAKER) 5.14 M/ L 3.93-5.22 (test code = 761) HEMOGLOBIN (BEAKER) (test code = 12.7 GM/DL 11.2-15.7 410) HEMATOCRIT (BEAKER) (test code = 41.2 % 34.1-44.9 411) MEAN CORPUSCULAR VOLUME (BEAKER) 80.2 fL 79.4-94.8 (test code = 753) MEAN CORPUSCULAR HEMOGLOBIN 24.7 pg 25.6-32.2 L (BEAKER) (test code = 751) MEAN CORPUSCULAR HEMOGLOBIN CONC 30.8 GM/DL 32.2-35.5 L (BEAKER) (test code = 752) RED CELL DISTRIBUTION WIDTH 14.7 % 11.7-14.4 H (BEAKER) (test code = 412) PLATELET COUNT (BEAKER) (test 277 K/CU MM 150-450 code = 756) MEAN PLATELET VOLUME (BEAKER) 10.3 fL 9.4-12.3 (test code = 754) NUCLEATED RED BLOOD CELLS 0 /100 WBC 0-0 (BEAKER) (test code = 413) NEUTROPHILS RELATIVE PERCENT 61 % (BEAKER) (test code = 429) LYMPHOCYTES RELATIVE PERCENT 31 % (BEAKER) (test code = 430) MONOCYTES RELATIVE PERCENT 6 % (BEAKER) (test code = 431) EOSINOPHILS RELATIVE PERCENT 2 % (BEAKER) (test code = 432) BASOPHILS RELATIVE PERCENT 1 % (BEAKER) (test code = 437) NEUTROPHILS ABSOLUTE COUNT 4.04 K/ L 1.56-6.13 (BEAKER) (test code = 670) LYMPHOCYTES ABSOLUTE COUNT 2.02 K/ L 1.18-3.74 (BEAKER) (test code = 414) MONOCYTES ABSOLUTE COUNT (BEAKER) 0.41 K/ L 0.24-0.36 H (test code = 415) EOSINOPHILS ABSOLUTE COUNT 0.10 K/ L 0.04-0.36 (BEAKER) (test code = 416) BASOPHILS ABSOLUTE COUNT (BEAKER) 0.03 K/ L 0.01-0.08 (test code = 417) IMMATURE GRANULOCYTES-RELATIVE 0 % 0-1 PERCENT (BEAKER) (test code = 2801) SARS-CoV2/RT-PCR ([facility])2021-02-19 06:33:05 Test Item Value Reference Range Interpretation Comments SARS-COV2/RT-PCR (test Negative Negative code = 20359-1) SAEED (test code = SAEED) Negative result for this test determines that SARS-CoV-2 RNA was not present in the specimen above the Limit of Detection (LOD). However, Negative results do not preclude SARS-CoV-2 infection and should not be used as the sole basis for treatment or patient management decisions. Negative results must be combined with clinical observations, patient history, and epidemiological information. A false negative result may occur if a specimen is improperly collected, transported, or handled. A false negative result should be considered if patient's recent exposures or clinical presentation indicate that COVID-19 (SARS-CoV-2) is likely and diagnostic tests for other causes of illness are negative. Re-testing should be considered in cases of suspected false negatives. The limit of detection for this assay is 100 copies/mL. This SARS-CoV-2 test is a real-time RT_PCR test intended for the qualitative detection of nucleic acid from SARS-CoV-2 in a nasopharyngeal swab specimen collected from individuals suspected of COVID-19 by their healthcare provider. This test has not been Food and Drug Administration (FDA) cleared or approved. This is a modified version of an approved Emergency Use Authorization (EUA) and is in the process of review by the FDA. Once authorized by the FDA, the issued EUA will be effective until the declaration that circumstances exist justifying the authorization of the emergency use of in vitro diagnostic tests for detection and/or diagnosis of COVID-19 is terminated under Section 564(b)(2) of the Act or the EUA is revoked under Section 564(g) of the Act. Testing was performed using the [employer] SARS-CoV-2 assay. Fact Sheet for Healthcare Providers:https://www.coco syed/kamron/RT SARS-CoV-2 HCP Fact Sheet 51-021292.pdf Fact Sheet for Healthcare Patients:https://www.miquel griffithInternal Gaming/kamron/RT SARS-CoV-2 Patient Fact Sheet EN 51-717294P1.pdf Lab Interpretation Normal (test code = 39888-3) [facility]2021-02-19 06:33:05 Test Item Value Reference Range Interpretation Comments SARS-COV2/RT-PCR (test Negative Negative code = 86528-3) SAEED (test code = SAEED) Negative result for this test determines that SARS-CoV-2 RNA was not present in the specimen above the Limit of Detection (LOD). However, Negative results do not preclude SARS-CoV-2 infection and should not be used as the sole basis for treatment or patient management decisions. Negative results must be combined with clinical observations, patient history, and epidemiological information. A false negative result may occur if a specimen is improperly collected, transported, or handled. A false negative result should be considered if patient's recent exposures or clinical presentation indicate that COVID-19 (SARS-CoV-2) is likely and diagnostic tests for other causes of illness are negative. Re-testing should be considered in cases of suspected false negatives. The limit of detection for this assay is 100 copies/mL. This SARS-CoV-2 test is a real-time RT_PCR test intended for the qualitative detection of nucleic acid from SARS-CoV-2 in a nasopharyngeal swab specimen collected from individuals suspected of COVID-19 by their healthcare provider. This test has not been Food and Drug Administration (FDA) cleared or approved. This is a modified version of an approved Emergency Use Authorization (EUA) and is in the process of review by the FDA. Once authorized by the FDA, the issued EUA will be effective until the declaration that circumstances exist justifying the authorization of the emergency use of in vitro diagnostic tests for detection and/or diagnosis of COVID-19 is terminated under Section 564(b)(2) of the Act or the EUA is revoked under Section 564(g) of the Act. Testing was performed using the [employer] SARS-CoV-2 assay. Fact Sheet for Healthcare Providers:https://www.coco syed/kamron/RT SARS-CoV-2 HCP Fact Sheet 51-671755.pdf Fact Sheet for Healthcare Patients:https://www.miquel griffithInternal Gaming/kamron/RT SARS-CoV-2 Patient Fact Sheet EN 51-545210E4.pdf Lab Interpretation Normal (test code = 10089-9) [place] [facility]2021-02-19 06:33:05 Test Item Value Reference Range Interpretation Comments SARS-COV2/RT-PCR (test code = Negative Negative [id number]) Negative result for this test determines that SARS-CoV-2 RNA was not present in the specimen above the Limit of Detection (LOD). However, Negative results do not preclude SARS-CoV-2 infection and should not be used as the sole basis for treatment or patient management decisions. Negative results must be combined with clinical observations, patient history, and epidemiological information. A false negative result may occur if a specimen is improperly collected, transported, or handled. A false negative result should be considered if patient's recent exposures or clinical presentation indicate that COVID-19 (SARS-CoV-2) is likely and diagnostic tests for other causes of illness are negative. Re-testing should be considered in cases of suspected false negatives.The limit of detection for this assay is 100 copies/mL.This SARS-CoV-2 test is a real-time RT_PCR test intended for the qualitative detection of nucleic acid from SARS-CoV-2 in a nasopharyngeal swab specimen collected from individuals suspected of COVID-19 by their healthcare provider.This test has not been Food and Drug Administration (FDA) cleared or approved. This is a modified version of an approved Emergency Use Authorization (EUA) and is in the process of review by the FDA. Once authorized by the FDA, the issued EUA will be effective until the declaration that circumstances exist justifying the authorization of the emergency use of in vitro diagnostic tests for detection and/or diagnosis of COVID-19 is terminated under Section 564(b)(2) of the Act or the EUA is revoked under Section 564(g) of the Act.Testing was performed using [employer] SARS-CoV-2 assay.Fact Sheet for Healthcare Providers:https://www.[employer]ical [employer].Internal Gaming/kamron/RT SARS-CoV-2 HCP Fact Sheet 51- 706433.pdfFact Sheet for Healthcare Patients:https://www.[employer]/kamron/RT SARS-CoV-2 Patient Fact Sheet EN 51-750744K9.pdfArterial doppler legs bilateral 2021-01-13 19:34:33Ejection FractionSLEH ECHO [facility]ARTLAB [facility] legs [id number] 19:34:33Ejection FractionSLEH ECHO HEARTLAB [facility]ingtonVenous doppler legs [id number] 19:33:12Ejection FractionSLEH [facility] 2021-01-13 19:33:12Ejection FractionSLE ECHO HEARTLAB [facility] Met[facility] [id number] 08:02:02 Test Item Value Reference Range Interpretation Comments Sodium (test code = 137 meq/L 690-236 1268-2) Potassium (test code = 3.8 meq/L 3.5-5.1 2823-3) Chloride (test code = 104 meq/L 98-107 5-0) CO2 (test code = 26 meq/L 22-29 2027-9) BUN (test code = 8 mg/dL 7- 3094-0) Creatinine (test code 0.81 mg/dL 0.57-1.25 = 2160-0) Glucose (test code = 117 mg/dL 70-105 H 2345-7) Calcium (test code = 9.1 mg/dL 8.4-10.2 08647-4) EGFR (test code = 90 mL/min/1.73 [place] [address]-4) NOT ACCURATE CREATININE CLEARANCE IN PREDICTING GLOMERULAR FILTRATION RATE . ESTIMATED GFR I S NOT APPLICABLE FOR DIALYSIS PATIENTS. SAEED (test code = SAEED) Billet Checker ID [employer] [facility] Interpretation Abnormal (test code = 60117-2) [facility] Metabolic [id number] 08:02:02 Test Item Value Reference Range Interpretation Comments Sodium (test code = 137 meq/L 215-751 6445-2) Potassium (test code = 3.8 meq/L 3.5-5.1 2823-3) Chloride (test code = 104 meq/L 98-107 2075-0) CO2 (test code = 26 meq/L 22-29 8-9) BUN (test code = 8 mg/dL 7-21 3094-0) Creatinine (test code 0.81 mg/dL 0.57-1.25 = 2160-0) Glucose (test code = 117 mg/dL 70-105 H 2345-7) Calcium (test code = 9.1 mg/dL 8.4-10.2 29002-8) EGFR (test code = 90 mL/min/1.73 [place] [address]-7) NOT ACCURATE CREATININE CLEARANCE IN PREDICTING GLOMERULAR FILTRATION RATE . ESTIMATED GFR I S NOT APPLICABLE FOR DIALYSIS PATIENTS. SAEED (test code = SAEED) Billet Checker ID [employer] [facility] Interpretation Abnormal (test code = 19015-2) [facility] METABOLIC [id number] 08:02:02 Test Item Value Reference Range Interpretation Comments SODIUM (BEAKER) 137 meq/L 136-145 (test code = 381) POTASSIUM (BEAKER) 3.8 meq/L 3.5-5.1 (test code = 379) CHLORIDE (BEAKER) 104 meq/L 98-107 (test code = 382) CO2 (BEAKER) (test 26 meq/L 22-29 code = 355) BLOOD UREA NITROGEN 8 mg/dL 7-21 (BEAKER) (test code = 354) CREATININE (BEAKER) 0.81 mg/dL 0.57-1.25 (test code = 358) GLUCOSE RANDOM 117 mg/dL 70-105 H (BEAKER) (test code = 652) CALCIUM (BEAKER) 9.1 mg/dL 8.4-10.2 (test code = 697) EGFR (BEAKER) (test 90 mL/min/1.73 ESTIMA LUDWIG GFR IS code = 1092) sq m NOT ACCURATE CREATININE CLEARANCE IN PREDICTING GLOMERULAR FILTRATION RATE . ESTIMATED GFR I S NOT APPLICABLE FOR DIALYSIS PATIEN TS. Billet Checker ID - ISAURA FRAD, CHEST, 2 [id number] 08:57:00PA and lateralReason for Exam:->SOB, recent COVID, please evaluate [facility] CLEARLAKEName: ROSELINE CASTILLO : 1965 Sex: FFINAL REPORT EXAMINATION: RAD, CHEST, 2 VIEWS INDICATION: SOB, recent COVID, pleaseevaluate COMPARISON: None FINDINGS:TUBES and LINES: None. LUNGS: Lungs are well inflated. Lungs areclear. There is no evidence of pneumonia or pulmonary edema. PLEURA: No pleural effusion or pneumothorax. HEART AND MEDIASTINUM: The cardiomediastinal silhouette is unremarkable. BONES AND SOFT TISSUES: No acute osseous lesion. Soft tissues are unremarkable. UPPER ABDOMEN: No free air under the diaphragm. IMPRESSION: No acute thoracic abnormality. Signed: Jose Thorpe MDReport Verified Date/Time: 10/21/2020 08:57:59 Reading Location: [facility] Reading Room [address] [place] [address] SARS-COV2/RT-PCR ([facility])2020-10-06 15:20:00 Test Item Value Reference Range Interpretation Comments SARS-COV2/RT-PCR (test Positive Not Detected, Negative, AA code = 7680728) See external report for linked test SARS-COV-2 PERFORMING LAB [facility] (test code = 9315884) Results are for the detection of SARS-CoV-2 RNA. The SARS-CoV-2 RNA is generally detectable in nasopharyngeal swab specimens during the acute phase of infection. Positive results are indicative of active infection with SARS-CoV-2 and the patient is presumed to be contagious. Laboratory test results should always be considered in the clinical correlation with patient history and other epidemiological and diagnostic information that is necessary to determine patient infection status. Patient management decisions should follow current CDC guidelines. Positive results do not rule out bacterial infection or co-infection with other viruses. The agent detected may not be the definite cause of disease. The limit of detection for this assay is 800 copies/mL.This SARS CoV-2 test is a real-time RT-PCR test intended for the qualitative detection of nucleic acid from SARS-CoV-2 in a nasopharyngeal swab specimen collected from individuals suspected of COVID-19 by their healthcare provider.This test has not been Food and Drug Administration (FDA) cleared or approved. This is a modified version of an approvedEmergency Use Authorization (EUA) and is in the process of review by the FDA. Once authorized by theFDA, the issued EUA will be effective until the declaration that circumstances exist justifying the authorization of the emergency use of in vitro diagnostic tests for detection and/or diagnosis of COVID-19 is terminated under Section 564(b)(2) of the Act or the EUA is revoked under Section 564(g) of the Act.Fact Sheet for Healthcare Providers:https://www.elastic.io.com/sites/default/files/product/documen ts/Uxjt_Xqlrz_UC_Zvpxofwxr_Kver_ZHPF-WcT-6.pdfFact Sheet for Healthcare Patients:https://www.elastic.io.c om/sites/default/files/product/documents/Ywrq_Ebjkx_Zzsjirut_Ymhp_LVTP-HjO-6.pdf Performing Laboratory:[place] [address] [address] [id number], EXTREMITY, LOWER, JOINT, WITHOUT CONTRAST, [id number] 16:32:00 Unlisted Reason for Exam - Click Yes and Enter Reason Below->NoLocation: For [place] Only->[facility] the left [facility] History: Ankle pain, tendon abnormality suspected Comparison: No priors Technique: Multiplanar multisequence MRI of the left ankle was performed without contrast. Findings: Tendons: The Achilles tendon is normal in size and signal intensity. No abnormalities are visualized in the posterior tibialis, flexor digitorum longus, and flexor hallucis longus tendons. No peroneal tendon abnormalities or extensor tendon abnormalities are visualized. Ligaments: The anterior and posterior syndesmotic ligaments are intact. The anterior and posterior talofibular ligaments and the calcaneofibular ligament are intact. No abnormalities are seen in the deltoidligament complex. No abnormal signal is seen in the sinus tarsi. Cartilage and Bones: No osteochondral lesion of the talar dome or the tibial plafond. There is a tiny focus of marrow edema in the lateral malleolus. No fracture or malalignment. Fluid: No significant joint effusion. No ganglion cyst. Muscles: No muscle signal abnormalities. Tarsal tunnel: No mass lesion. No abnormalities are visualized. Plantar fascia: No signal abnormalities. Impression: Tiny focus of marrow edema in the lateral malleolus may reflect contusion. Remainder of exam is unremarkable. Signed: Ariel Nugent Verified Date/Time: 11/28/2019 16:32:28 Reading Location: [facility] C0X Ortho Consult Reading Room Electronicallysigned by: ARIEL NUGENT M.D. on 11/28/2019 04:32 PMSARS-COV2/RT-PCR ([facility])2019-09-11 10:47:00 Test Item Value Reference Range Interpretation Comments SARS-COV2/RT-PCR (test code = Negative Not Detected, Negative 0566022) SARS-COV-2 PERFORMING LAB [facility] (test code = 8453314) TISSUE [id number] 07:51:00Surgical Pathology Report Case: [id number] Authorizing Provider: Lawrence Nathan Collected: 03/30/2019 1318 MD Nataliia Ordering Location: [facility] Received: 03/30/2019 161 Pathologist: Dmitri Russ MD Specimens: A) - Biopsy, Gastric, R/O GASTRITIS B) - Biopsy, Gastroesophageal Junction, BX, IRREGULA Z-LINE A. STOMACH, RANDOM BIOPSIES: - GASTRIC MUCOSA WITH NO SIGNIFICANT DIAGNOSTIC ABNORMALITY - NEGATIVE FOR HELICOBACTER PYLORI ORGANISMS BY WARTHIN STARRY STAIN - NEGATIVE FOR INTESTINAL METAPLASIA, DYSPLASIA, MALIGNANCYB. GASTROESOPHAGEAL JUNCTION, IRREGULAR Z-LINE, BIOPSY: - JUNCTIONAL MUCOSA WITH MILD NON-SPECIFIC CHRONIC INFLAMMATION - NEGATIVE FOR INTESTINALMETAPLASIA/ HURST'S ESOPHAGUS - NEGATIVE FOR DYSPLASIA/ MALIGNANCY Signing Pathologist Direct Phone Line: [phone] signed by Dmitri Russ MD on 04/03/2019 at 7:51 AMB. PAS- alcian blue stain and deeper levels are examined.[id number] upper quadrant pain, gastroesophageal reflux diseaseA, B. Stomach biopsyA. Received in formalin labeled with the patient's name, accession number and "gastric biopsy rule out gastritis" are three pieces of wilkerson-white mucosal tissue ranging in size from 0.2 x 0.2 x 0.1 cm to 0.3 x 0.3 x 0.3 cm. The specimen is submitted in toto in cassette A1. B. Received in formalin labeled with the patient's name, accession number and "gastroesophageal junction biopsy, irregular Z line" is a 0.3 x 0.3 x 0.3 cm piece of wilkerson-white mucosal tissue. The specimen is submitted in toto in B1. NW/plPerformed.The interpretation of this case included the use of immunohistochemistry or special stains.Control Slides Examined: In-house known positive controlswere evaluated along with the test tissue. These control slides run alongside of the patients sampleshow appropriate staining. Internal positive and negative controls when available are evaluated Immunohistochemistry technical testing was performed at [facility], Pathology Laboratory where it was developed and its performance characteristics were determined. It has not been cleared or approved by the U.S. Food and Drug Administration. The FDA has determined that such clearanceor approval is not necessary. The test is used for clinical purposes. It should not be regarded as investigational or for research. This laboratory is certified under the Clinical Laboratory Improvement Amendments of 1988 (CLIA-88) as qualified to perform high complexity clinical laboratory testing.HEPATOBILIARY IMAGING W/ [id number] 13:53:00FINAL REPORT PROCEDURE: HEPATOBILIARY SCAN with Sincalide Infusion CPT CODE: 78 227 INDICATION: Abdominal pain PROTOCOL: 5.4 mCi of Tc-99m mebrofenin was injected intravenously. Images of the upper abdomen were obtained for approximately 60 minutes after tracer injection. 1.9 micrograms (0.02 ugm/kg) of sincalide was then infused intravenously over approximately 60 minutes with co ntinuous imaging during the infusion. FINDINGS: Initial tracer uptake into the liver is physiological. Subsequent tracer clearance from the liver proceeds normally. There is good visualization of the extrahepatic biliary duct and the gallbladder, and the tracer appears appropriately in the small bowel. Following injection of sincalide, serial images show good emptying of gallbladder contents into thesmall bowel. There is 82% emptying of the gallbladder. IMPRESSION: There is normal gallbladder filling and normal emptying in response to sincalide stimulation. Signed: Justin Cotton MDRort Verified Date/Time: 03/28/2019 13:53:01 Reading Location: [address] [address] Electronicall y signed by: JUSTIN COTTON MD on 03/28/2019 01:53 PMHEPATITIS PANEL, [id number] 09:50:00 Test Item Value Reference Range Interpretation Comments HEPATITIS A IGM ANTIBODY (BEAKER) Nonreactive Nonreactive (test code = 498) HEPATITIS B CORE IGM ANTIBODY Nonreactive Nonreactive (BEAKER) (test code = 645) HEPATITIS C ANTIBODY (BEAKER) Nonreactive Nonreactive (test code = 367) HEPATITIS B SURFACE ANTIGEN (2) Nonreactive Nonreactive (BEAKER) (test code = 2585) Billet Checker ID - BSHEPATIC FUNCTION [id number] 09:26:00 Test Item Value Reference Range Interpretation Comments TOTAL PROTEIN (BEAKER) (test code = 7.7 gm/dL 6.0-8.3 770) ALBUMIN (BEAKER) (test code = 1145) 4.1 g/dL 3.5-5.0 BILIRUBIN TOTAL (BEAKER) (test code 0.2 mg/dL 0.2-1.2 = 377) BILIRUBIN DIRECT (BEAKER) (test 0.1 mg/dL 0.1-0.5 code = 706) ALKALINE PHOSPHATASE (BEAKER) (test 85 U/L 40-150 code = 346) AST (SGOT) (BEAKER) (test code = 16 U/L 5-34 353) ALT (SGPT) (BEAKER) (test code = 19 U/L 6-55 347) Billet Checker ID - AAHAMIDC-REACTIVE [id number] 09:26:00 Test Item Value Reference Range Interpretation Comments C-REACTIVE PROTEIN (BEAKER) (test 1.16 mg/dL 0.00-0.50 H code = 676) Billet Checker ID - AAHAMIDCBC W/PLT COUNT & AUTO [id number] 09:12:00 Test Item Value Reference Range Interpretation Comments WHITE BLOOD CELL COUNT (BEAKER) 8.1 K/ L 3.5-10.5 (test code = 775) RED BLOOD CELL COUNT (BEAKER) 5.06 M/ L 3.93-5.22 (test code = 761) HEMOGLOBIN (BEAKER) (test code = 12.7 GM/DL 11.2-15.7 410) HEMATOCRIT (BEAKER) (test code = 41.4 % 34.1-44.9 411) MEAN CORPUSCULAR VOLUME (BEAKER) 81.8 fL 79.4-94.8 (test code = 753) MEAN CORPUSCULAR HEMOGLOBIN 25.1 pg 25.6-32.2 L (BEAKER) (test code = 751) MEAN CORPUSCULAR HEMOGLOBIN CONC 30.7 GM/DL 32.2-35.5 L (BEAKER) (test code = 752) RED CELL DISTRIBUTION WIDTH 13.8 % 11.7-14.4 (BEAKER) (test code = 412) PLATELET COUNT (BEAKER) (test 246 K/CU MM 150-450 code = 756) MEAN PLATELET VOLUME (BEAKER) 10.2 fL 9.4-12.3 (test code = 754) NUCLEATED RED BLOOD CELLS 0 /100 WBC 0-0 (BEAKER) (test code = 413) NEUTROPHILS RELATIVE PERCENT 69 % (BEAKER) (test code = 429) LYMPHOCYTES RELATIVE PERCENT 25 % (BEAKER) (test code = 430) MONOCYTES RELATIVE PERCENT 5 % (BEAKER) (test code = 431) EOSINOPHILS RELATIVE PERCENT 1 % (BEAKER) (test code = 432) BASOPHILS RELATIVE PERCENT 0 % (BEAKER) (test code = 437) NEUTROPHILS ABSOLUTE COUNT 5.57 K/ L 1.56-6.13 (BEAKER) (test code = 670) LYMPHOCYTES ABSOLUTE COUNT 2.00 K/ L 1.18-3.74 (BEAKER) (test code = 414) MONOCYTES ABSOLUTE COUNT (BEAKER) 0.40 K/ L 0.24-0.36 H (test code = 415) EOSINOPHILS ABSOLUTE COUNT 0.05 K/ L 0.04-0.36 (BEAKER) (test code = 416) BASOPHILS ABSOLUTE COUNT (BEAKER) 0.02 K/ L 0.01-0.08 (test code = 417) IMMATURE GRANULOCYTES-RELATIVE 0 % 0-1 PERCENT (BEAKER) (test code = 2801) U/S, ABDOMINAL, [id number] 10:34:00Reason for Exam:->RUQ pain, please evaluate for gallstoneFINAL REPORT TECHNIQUE: Grayscale ultrasound of the abdomen. INDICATION: 53-year-old woman with right upper quadrant pain. COMPARISON: None. FINDINGS: MIDLINE VASCULATURE: The visualized inferior vena cava is patent. Portal vein is patent. The maximum visualized aortic diameter is2.1 cm. LIVER: The liver is normal in size and echogenicity with smooth contour. No focal lesions. BILIARY:Gallbladder: No gallstones or sludge. No gallbladder wall thickening, pericholecystic fluid, or distention. Negative sonographic Rodriguez sign.Common bile duct measures 0.5 cm, within normal limits. No intrahepatic biliary ductal dilatation. PANCREAS: Visualized portions of the pancreas are unremarkable. SPLEEN: No splenomegaly. PERITONEUM: No free fluid. KIDNEYS: Both kidneys are normal in size.No hydronephrosis. No sonographically evident solid mass lesion. No shadowing nephrolithiasis. IMPRES DEANNA:Unremarkable abdominal ultrasound. Signed: Demetrio Waller Verified Date/Time: 11/30/2018 10:34:02 Reading Location: [address] Radiology Reading Room
[2021-10-12] MEDS ORDERED: DIAZEPAM 5 MG TABLET ONE (07:32)
[2021-10-12 07:33] LABS: Urine Blood Negative (Negative); Urine Glucose Negative (Negative); Urine Protein Negative (Negative); Urine Specific Gravity 1.025 (1.005-1.030)
[2021-10-12] MEDS ORDERED: HYDROCODONE/APAP 5/325 MG TAB ONE (07:33)
[2021-10-12 07:49] LABS: Urine Bilirubin Negative (Negative); Urine Blood Negative (Negative); Urine Clarity Clear (Clear); Urine Color Yellow (Yellow); Urine Glucose Negative (Negative); Urine Protein Negative (Negative); Urine Urobilinogen 0.2 mg/dL (0.2-1.0)
[2021-10-12 08:00] LABS: Absolute Lymphocytes (CBC) 2.1 K/uL (0.7-4.9); Lymphocytes % 27.1 % (15.3-44.8); MCV 76.5 fL (80-100); MPV 8.3 fL (7.6-11.3); RBC Red Blood Cell Count 4.84 M/uL (3.86-4.86)
--- NOTE | 2021-10-12 08:13 | RAD REPORT ---
EXAM DESCRIPTION: US - Extremity Venous Uni Ltd - 10/12/2021 7:51 am CLINICAL HISTORY: PAIN Leg swelling and edema. COMPARISON: No comparisons FINDINGS: Right lower extremity venous system was interrogated with Doppler technique. Normal flow, compressibility and augmentation was noted. There is no DVT present. IMPRESSION: No evidence of right lower extremity deep venous thrombosis.
[2021-10-12 08:18] LABS: Albumin 3.5 g/dL (3.4-5.0); Bilirubin Total 0.3 mg/dL (0.2-1.0); Potassium 3.9 mmol/L (3.5-5.1); Protein, Total 8.1 g/dL (6.4-8.2)
--- NOTE | 2021-10-12 08:29 | EDPHYS ---
Physician Documentation [facility] Name: Meg Maynard Age: 55 yrs Sex: Female : 1965 Arrival Date: 10/12/2021 Time: 07:03 Bed 15 Private MD: ED Physician Everett Clark HPI: 10/12 08:31 This 55 yrs old Black Female presents to ER via Ambulatory with complaints of Numbness, ms3 Leg Pain. 08:32 The patient presents with pain, that is chronic, swelling, tenderness. The complaints ms3 affect the medial aspect of right knee. Context: the patient can fully bear weight, the patient is able to ambulate. Onset: The symptoms/episode began/occurred 2 month(s) ago. Modifying factors: The symptoms are alleviated by nothing. the symptoms are aggravated by nothing. Associated signs and symptoms: Pertinent positives: swelling, of the right leg. Treatment prior to arrival includes: no previous treatment. Severity of symptoms: At their worst the symptoms were severe, in the emergency department the symptoms are unchanged, a " 10" out of "10". STUDENT SERVICES REP: 07:17 LMP N/A - Post-menopause jl7 Historical: - Allergies: 07:17 Sulfa (Sulfonamide Antibiotics); jl7 - Home Meds: 07:17 Nifedipine Oral [Active]; losartan oral [Active]; jl7 - PMHx: 07:17 Hypertensive disorder; jl7 07:19 carpal tunnel syndrome; jl7 - Immunization history:: Client reports receiving the 2nd dose of the Covid vaccine. - Social history:: Smoking status: Patient denies any tobacco usage or history of. ROS: 08:32 Constitutional: Negative for fever, and chills. Neck: Negative for injury, pain, and ms3 swelling, Cardiovascular: Negative for chest pain, and palpitations. Respiratory: Negative for shortness of breath, cough, wheezing, and pleuritic chest pain, Abdomen/GI: Negative for abdominal pain, nausea, vomiting, diarrhea, and constipation. 08:32 Skin: Negative for injury, rash, and discoloration, Neuro: Negative for headache, weakness, numbness, tingling. 08:32 Back: Positive for pain at rest, pain with movement. 08:32 MS/extremity: Positive for pain. Exam: 08:32 Constitutional: This is a well developed, well nourished patient who is awake, alert, ms3 and in no acute distress. Head/Face: Normocephalic, atraumatic. Neck: Trachea midline, no cervical lymphadenopathy. Supple, full range of motion without nuchal rigidity, or vertebral point tenderness. No Meningismus. Chest/axilla: Normal chest wall appearance and motion. Nontender with no deformity. Cardiovascular: Regular rate and rhythm with a normal S1 and S2. No gallops, murmurs, or rubs. Normal PMI, no JVD. No pulse deficits. Respiratory: Lungs have equal breath sounds bilaterally, clear to auscultation and percussion. No rales, rhonchi or wheezes noted. No increased work of breathing, no retractions or nasal flaring. Abdomen/GI: Soft, non-tender, with normal bowel sounds. No distension or tympany. No guarding or rebound. No evidence of tenderness throughout. Back: No spinal tenderness. No costovertebral tenderness. Full range of motion. Skin: Warm, dry with normal turgor. Normal color with no rashes, no lesions, and no evidence of cellulitis. MS/ Extremity: Pulses equal, no cyanosis. Neurovascular intact. Full, normal range of motion. Neuro: Awake and alert, GCS 15, oriented to person, place, time, and situation. Cranial nerves II-XII grossly intact. Motor strength 5/5 in all extremities. Sensory grossly intact. Cerebellar exam normal. Normal gait. Psych: Awake, alert, with orientation to person, place and time. Behavior, mood, and affect are within normal limits. Vital Signs: 07:15 BP 134 / 90; Pulse 72; Resp 17; Temp 97.2; Pulse Ox 97% on R/A; Weight 101.6 kg; Height jl7 5 ft. 5 in. (165.10 cm); Pain 10/10; 08:00 BP 128 / 85; Pulse 66; Resp 14 S; Pulse Ox 95% on R/A; Pain 4/10; jg9 07:15 Body Mass Index 37.28 (101.60 kg, 165.10 cm) jl7 MDM: 07:29 Patient medically screened. ms3 08:25 Special discussion: I discussed with the patient/guardian in detail that at this point ms3 there is no indication for admission to the hospital. It is understood, however, that if the symptoms persist or worsen the patient needs to return immediately for re-evaluation. ED course: Printed results of labs and US, sat at bedside and discussed results with patient and her . Patient to follow up with [facility] for outpatient workup. Patient understands/ agrees with plan. All questions answered. Will give patient 5 mg Flexeril as she is concerned about sedative side effects. . 08:32 Differential diagnosis: DVT vs Thrombocytopenia vs UTI vs muscle spasm. Data reviewed: ms3 vital signs, nurses notes, lab test result(s), radiologic studies, and as a result, I will discharge patient. Counseling: I had a detailed discussion with the patient and/or guardian regarding: the historical points, exam findings, and any diagnostic results supporting the discharge/admit diagnosis, lab results, radiology results, the need for outpatient follow up, to return to the emergency department if symptoms worsen or persist or if there are any questions or concerns that arise at home. 10/12 07:33 Order name: CBC with Diff; Complete Time: 08:21 ms3 10/12 07:22 Order name: Extremity Venous Uni Ltd US; Complete Time: 08:21 ms3 10/12 07:33 Order name: CMP; Complete Time: 08:21 ms3 10/12 07:33 Order name: Urine Dipstick-Ancillary; Complete Time: 08:21 EDMS 10/12 07:50 Order name: Urinalysis; Complete Time: 08:21 EDMS 10/12 07:22 Order name: Urine Dipstick-Ancillary (obtain specimen); Complete Time: 07:40 ms3 Administered Medications: 07:28 Drug: Valium (diazepam) 5 mg Route: PO; jg9 08:00 Follow up: Response: No adverse reaction; Anxiety decreased jg9 07:28 Drug: HYDROcodone-acetaminophen 5 mg-325 mg 1 tabs Route: PO; jg9 08:00 Follow up: Response: No adverse reaction; Pain is decreased; RASS: Drowsy (-1) jg9 Disposition Summary: 10/12/21 08:29 Discharge Ordered Location: Home ms3 Condition: Stable ms3 Diagnosis - Pain in right leg ms3 - Low back pain ms3 - Rash and other nonspecific skin eruption ms3 Followup: ms3 - With: Private Physician - When: 2 - 3 days - Reason: Recheck today's complaints Discharge Instructions: - Discharge Summary Sheet ms3 - Acute Back Pain, Adult ms3 - Musculoskeletal Pain ms3 - Rash, Adult ms3 Forms: - Medication Reconciliation Form ms3 - Thank You Letter ms3 - Antibiotic Education ms3 - Prescription Opioid Use ms3 - Work release form jg9 Prescriptions: - Cyclobenzaprine 5 mg Oral Tablet - take 1 tablet by ORAL route 3 times per day As needed; 15 tablet; Refills: 0, ms3 Product Selection Permitted Signatures: Dispatcher [employer] Angus Modi, RN RN jl7 Everett Clark DO DO ms3 Sammi Jason, RN RN jg9 Corrections: (The following items were deleted from the chart) 07:18 07:17 Allergies: No Known Allergies; vargas jl7 07:54 07:24 URINALYSIS+U.LAB.BRZ ordered. [facility] ED[facility]
--- NOTE | 2021-10-12 08:29 | ER ---
Nurse's Notes [facility] Name: Meg Maynard Age: 55 yrs Sex: Female : 1965 Arrival Date: 10/12/2021 Time: 07:03 Bed 15 Private MD: Diagnosis: Pain in right leg;Low back pain;Rash and other nonspecific skin eruption Presentation: 10/12 07:15 Chief complaint: Patient states: Low back pain x 2 months, radiates to right leg, jl7 numbness to right leg and arm x 2 weeks. Coronavirus screen: At this time, the client does not indicate any symptoms associated with coronavirus-19. Ebola Screen: No symptoms or risks identified at this time. Initial Sepsis Screen: Does the patient meet any 2 criteria? No. Patient's initial sepsis screen is negative. Does the patient have a suspected source of infection? No. Patient's initial sepsis screen is negative. Risk Assessment: Do you want to hurt yourself or someone else? Patient reports no desire to harm self or others. Onset of symptoms was July 2021. 07:15 Method Of Arrival: Ambulatory [facility] 07:15 Acuity: MITCHELL 3 jl7 Triage Assessment: 07:17 General: Appears in no apparent distress. uncomfortable, Behavior is calm, cooperative, jl7 appropriate for age. Pain: Complains of pain in low back area Pain radiates to right arm and right leg Pain currently is 10 out of 10 on a pain scale. Quality of pain is described as aching, Is continuous. Neuro: Level of Consciousness is awake, alert, obeys commands, Oriented to person, place, time, situation. Cardiovascular: Patient's skin is warm and dry. Respiratory: Airway is patent Respiratory effort is even, unlabored, Respiratory pattern is regular, symmetrical. Derm: Skin is pink, warm \T\ dry. 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 - Social history:: Smoking status: Patient denies any tobacco usage or history of. Screenin:33 Abuse screen: Denies threats or abuse. Denies injuries from another. Nutritional jg9 screening: No deficits noted. Tuberculosis screening: No symptoms or risk factors identified. Fall Risk None identified. Assessment: 07:15 Reassessment: No changes from previously documented assessment. Patient reports pain is jg9 10/10. 08:00 Reassessment: Patient and/or family updated on plan of care and expected duration. Pain jg9 level reassessed. Patient is alert, oriented x 3, equal unlabored respirations, skin warm/dry/pink. Patient states feeling better. Patient states symptoms have improved. Vital Signs: 07:15 BP 134 / 90; Pulse 72; Resp 17; Temp 97.2; Pulse Ox 97% on R/A; Weight 101.6 kg; Height jl7 5 ft. 5 in. (165.10 cm); Pain 10/10; 08:00 BP 128 / 85; Pulse 66; Resp 14 S; Pulse Ox 95% on R/A; Pain 4/10; jg9 07:15 Body Mass Index 37.28 (101.60 kg, 165.10 cm) jl7 ED Course: 07:03 Patient arrived in ED. mr 07:15 Patient has correct armband on for positive identification. Bed in low position. Call jg9 light in reach. Side rails up X 1. 07:17 Triage completed. jl7 07:17 Arm band placed on right wrist. jl7 07:19 Patient placed in waiting room, Patient notified of wait time. jl7 07:21 Everett Clark DO is Attending Physician. ms3 07:23 Sammi Jason, RN is Primary Nurse. jg9 07:30 Inserted saline lock: 22 gauge in right forearm, using aseptic technique. Blood jg9 collected. 07:53 Extremity Venous Uni Ltd US In Process Unspecified. EDMS 08:41 No provider procedures requiring assistance completed. jg9 08:42 IV discontinued. jg9 Administered Medications: 07:28 Drug: Valium (diazepam) 5 mg Route: PO; jg9 08:00 Follow up: Response: No adverse reaction; Anxiety decreased jg9 07:28 Drug: HYDROcodone-acetaminophen 5 mg-325 mg 1 tabs Route: PO; jg9 08:00 Follow up: Response: No adverse reaction; Pain is decreased; RASS: Drowsy (-1) jg9 Medication: 08:42 VIS not applicable for this client. jg9 Outcome: 08:29 Discharge ordered by . ms3 08:41 Discharged to home via wheelchair. jg9 08:41 Condition: improved 08:41 Discharge instructions given to patient, Instructed on discharge instructions, follow up and referral plans. Demonstrated understanding of instructions, follow-up care, Prescriptions given X 1. 08:42 Patient left the ED. jg9 Signatures: Dispatcher [employer] Sveta GrayalAngus, RN RN jl7 Everett Clark DO DO ms3 Sammi Jason, RN RN jg9 Corrections: (The following items were deleted from the chart) 07:18 07:17 Allergies: No Known Allergies; jl7 jl7
[2021-10-12 09:21] VITALS: TEMP 97.2
[2021-10-12 09:23] VITALS: BP 128/85; O2SAT 95
== END 2021-10-12 08:42 | disposition home or self-care (01) ==
LOC: ER 07:02
DX: M79.604 Pain in right leg (principal); M54.50 Low back pain, unspecified; R21 Rash and other nonspecific skin eruption; I10 Essential (primary) hypertension; Z88.2 Allergy status to sulfonamides
CPT/HCPCS: 36415; 80053; 81003; 85025; 93971; 99284